=== PATIENT | female | born 1990 ===

== ENCOUNTER 2019-01-13 02:44 | Emergency (ER) | payer MEDICAID ==
[2019-01-13 03:11] VITALS: O2SAT 100
--- NOTE | 2019-01-13 04:21 | C.PDOC ---
History Of Present Illness patient c/o left sided neck pain that radiates down her left arm since going to sleep. she is concerned she is having a heart attack because her family told her that pain in her left arm means heart attack. she denies chest pain, sob, nausea, vomiting. Time Seen by Provider: 01/13/19 03:37 Chief Complaint (Nursing): Upper Extremity Problem/Injury Past Medical History Vital Signs: Last Vital Signs Temp 99.1 F 01/13/19 02:58 Pulse 20 L 01/13/19 02:58 Resp 20 01/13/19 02:58 BP 146/90 01/13/19 02:58 Pulse Ox 100 01/13/19 02:58 - Medical History PMH: No Chronic Diseases Family History: States: No Known Family Hx - Social History Hx Alcohol Use: Yes Hx Substance Use: No - Immunization History Hx Tetanus Toxoid Vaccination: No Hx Influenza Vaccination: No Hx Pneumococcal Vaccination: No Review Of Systems Constitutional: Negative for: Fever, Chills Cardiovascular: Negative for: Chest Pain, Palpitations Respiratory: Negative for: Cough, Shortness of Breath, SOB with Excertion Gastrointestinal: Negative for: Nausea, Vomiting, Abdominal Pain Musculoskeletal: Positive for: Neck Pain, Shoulder Pain Neurological: Negative for: Weakness, Numbness, Change in Speech, Altered Mental Status, Dizziness Physical Exam - Physical Exam Appears: Well, Non-toxic, No Acute Distress Head: Atraumatic, Normacephalic, Tenderness Throat: Normal Neck: Normal ROM, Trachea Midline, No Midline Cervical Tenderness, Paracervical Tenderness Chest: No Tenderness Cardiovascular: Rhythm Regular Respiratory: Normal Breath Sounds, No Accessory Muscle Use Back: Normal Inspection, No Vertebral Tenderness Extremity: Normal ROM, Tenderness (left lateral deltoid ttp, able to range shoulder joint) Extremity: Bilateral: Atraumatic Neurological/Psych: Oriented x3, Normal Speech, Normal Cognition, Normal Motor, Normal Sensation ED Course And Treatment O2 Sat by Pulse Oximetry: 100 Disposition Counseled Patient/Family Regarding: Diagnosis, Need For Followup, Rx Given - Disposition Disposition: HOME/ ROUTINE Disposition Time: 04:20 Condition: STABLE Additional Instructions: Take ibuprofen 600 mg by mouth three times a day as needed for pain. Instructions: Radiculopathy (DC) Forms: Gen Discharge Inst Moroccan, [facility] (Moroccan) Print Language: GIBRALTARIAN - Clinical Impression Clinical Impression: Cervical radiculopathy
[2019-01-13 05:56] VITALS: BP 116/78; PULSE 88; RESP 18; TEMP 98
--- NOTE | 2019-01-16 01:34 | CARD ---
APPROVED REPORT Date of service: 01/13/2019 EKG Measurement Heart [id number] <Conclusion> Sinus tachycardia Otherwise normal ECG
== END 2019-01-13 04:30 | disposition home or self-care (01) ==
LOC: C.ER 02:44
DX: M54.12 Radiculopathy, cervical region (principal)